=== PATIENT | female | born 1990 | race Caucasian/White ===

== ENCOUNTER → 2020-07-03 13:22 | Outpatient (BNVA) | payer BC, SELFPAY | PROVIDERS: Family Provider Nurse Practitioner Family; Visit Provider Nurse Practitioner Family | DX: N39.0 Urinary tract infection, site not specified (principal); R30.0 Dysuria | CPT/HCPCS: 80053; 81000 ==

== ENCOUNTER → 2021-02-24 12:05 | Outpatient (BNVA) | payer BC, SELFPAY | PROVIDERS: Family Provider Nurse Practitioner Family; PCP Family Medicine; Visit Provider Family Medicine | DX: K86.1 Other chronic pancreatitis (principal); R10.9 Unspecified abdominal pain | CPT/HCPCS: 80053; 80061; 83690; 85025; 86140 ==

== ENCOUNTER 2021-09-01 14:43 | Outpatient (CLI) | payer BC, SELFPAY ==
--- NOTE | 2021-09-01 15:10 | MR_ITS ---
WS: [id number] INDICATION: Evaluate hepatic lesion TECHNIQUE: MRI of the abdomen without and with gadolinium enhancement. Axial dual Echo imaging. Axial 2-D fiesta. Pre and post gadolinium axial and coronal fat saturation and lobulation imaging. Coronal 2-D fiesta axial 2-D fiesta FINDINGS: Comparison outside ultrasound report August 13, 2021. Outside images not available Liver is normal in appearance. No intrahepatic biliary ductal dilatation. Small amount of patchy sign al dropout in the right hepatic lobe on the out of phase imaging likely due to a small amount of fatt y infiltration. No other suspicious hepatic signal abnormalities. No suspicious hepatic findings. Nor mal portal vein and splenic vein. Normal GE junction. Normal stomach and GE junction. Normal spleen. Normal pancreas. Normal common bile duct. Adrenal glan ds are normal. No hydronephrosis in either kidney. Normal caliber abdominal aorta. Both kidneys are n ormal in appearance. No hydronephrosis. MR/MR abdomen wo/w con* [id number] IMPRESSION: 1. Small amount of signal dropout in the right hepatic lobe likely focal fatty infiltration. 2. No suspicious hepatic lesions. No enhancing hepatic lesions. 3. No other suspicious findings. PRELIMINARY REPORT. OUTSIDE IMAGING HAS BEEN REQUESTED.
[2021-09-01] MEDS: gadobenate dimeglumine 20 mL vial IV (16:30)
== END 2021-09-01 14:44 | disposition home or self-care (01) ==
LOC: RADSHAW 14:44
PROVIDERS: PCP Physician Assistant Medical; Visit Provider Nurse Practitioner Family
DX: K76.9 Liver disease, unspecified (principal)
CPT/HCPCS: 74183; A9577